=== PATIENT | female | born 1955 | race Caucasian/White ===

== ENCOUNTER 2017-08-01 09:45 | Outpatient (RCR) | payer MEDICARE, BC ==
[~2017-08-01 09:45] MED LIST: DECADRON 4MG TAB4 MG PO; NAPROXEN 3375 MG/TAB PO; NATURAL L-LYSI500 MG PO; NEURONTIN300 MG/CAP PO; NEXIUM 40MG40 MG PO; OYSCO 500500 M1 PO; VITAMIN B COMPL1 T16 PO; VITAMIN D 400400 IU PO
== END 2017-09-08 ==
LOC: MKS.ESL.PT
DX: I89.0 Lymphedema, not elsewhere classified (principal)
CPT/HCPCS: G8990-GP; G8991-GP

== ENCOUNTER → 2017-12-16 | Outpatient (CLI) | payer MEDICARE, BC ==
[2017-12-16] VITALS (8 sets, daily range): BP systolic 105–131; BP diastolic 56–76; PULSE 72–94
[~2017-12-16] VITALS: Ht 160 cm; Wt 59.0 kg
[~2017-12-16] MED LIST changes: +AMBIEN 5MG TABLE5 MG PO; +ATIVAN 0.50.5 MG/TAB PO; +ELIQUIS 5MG PO; +L-GLUTAMINE500 M5 PO; +NAPROSYN500 MG PO; +NORFLEX 10100 MG/TAB PO; +PREDNISONE10 MG PO; +PROBIOTIC FORMU1 CAP PO; +QUALAQUIN324 MG PO; +ULTRAM 50MG TAB50 MG PO; +VITAMIN D 1001000 IU PO
[2017-12-16 07:52] LABS: INR 1.2 (0.8-3.0); PROTHROMBIN TIME 14.1 SECONDS (9.7-12.8)
== END ==
LOC: COL.RAD 07:00
PROVIDERS: Internal Medicine Medical Oncology
DX: C78.7 Secondary malignant neoplasm of liver and intrahepatic bile duct (principal); Z85.42 Personal history of malignant neoplasm of other parts of uterus
CPT/HCPCS: J2250; J3010

== ENCOUNTER 2018-02-21 10:00 | Outpatient (RCR) | payer MEDICARE, BC ==
[2018-01-12 10:42] VITALS: BP 143/58; PULSE 73; TEMP 98.7
[2018-01-16] VITALS (10 sets, daily range): BP systolic 99–117; BP diastolic 46–63; PULSE 68–87; TEMP 98.1–98.8
[2018-01-24] VITALS (11 sets, daily range): BP systolic 114–146; BP diastolic 56–76; PULSE 66–87; TEMP 97.6–98.6
[2018-01-24 10:09] LABS: MEAN CELL VOLUME 87 fl (80.0-100.0); MEAN CORPUSCULAR HGB CONC 31 g/dl (33.0-37.0); MEAN PLATELET VOLUME 11.3 fl (7.4-10.4); PLATELET COUNT 189 K/mm3 (130-400); RED BLOOD COUNT 2.72 M/mm3 (4.10-5.30); REDCELL DISTRIBUTION WIDTH-CV 16.1 % (11.5-14.5)
[2018-01-24 10:10] LABS: HEMATOCRIT 23.6 % (37.0-47.0); HEMOGLOBIN 7.3 g/dl (12.5-16.0); MEAN CORPUSCULAR HEMOGLOBIN 27 pg (27.0-31.0)
[2018-01-24 10:22] LABS: ALANINE AMINOTRANSFERASE 62 U/L (9-52); ALBUMIN 2.6 gm/dL (3.5-5.0); ALKALINE PHOSPHATASE 373 U/L (50-136); ANION GAP 8 mmol/L (7-16); AST,SGOT 61 U/L (15-37); BILIRUBIN,TOTAL < 0.1 mg/dL (0.0-1.0); BLOOD UREA NITROGEN 22 mg/dL (7-17); CALCIUM 7.9 mg/dL (8.4-10.2); CARBON DIOXIDE 26 mmol/L (22-30); CHLORIDE 98 mmol/L (98-107); CREATININE, serum 0.89 mg/dL (0.52-1.25); GLUCOSE 134 mg/dL (74-106); SODIUM 132 mmol/L (137-145); TOTAL PROTEIN 5.4 gm/dL (6.4-8.2)
[2018-01-24 11:29] LABS: BAND 13 % (0-10); LYMPHOCYTE 2 % (20.0-51.0); NEUTROPHILS 84 % (42.0-75.2); PLATELET ESTIMATE NORMAL (NORMAL)
[2018-01-27 10:32] LABS: MEAN CELL VOLUME 83 fl (80.0-100.0); MEAN CORPUSCULAR HGB CONC 31 g/dl (33.0-37.0); MEAN PLATELET VOLUME 11.2 fl (7.4-10.4); PLATELET COUNT 157 K/mm3 (130-400); RED BLOOD COUNT 3.59 M/mm3 (4.10-5.30); REDCELL DISTRIBUTION WIDTH-CV 19.1 % (11.5-14.5)
[2018-01-27 10:34] LABS: HEMATOCRIT 29.6 % (37.0-47.0); HEMOGLOBIN 9.3 g/dl (12.5-16.0); MEAN CORPUSCULAR HEMOGLOBIN 26 pg (27.0-31.0)
[2018-01-27 10:44] VITALS: BP 118/68; PULSE 78; TEMP 97.6
[2018-01-27 10:52] LABS: ANISOCYTOSIS 1+; BAND 4 % (0-10); LYMPHOCYTE 3 % (20.0-51.0); MYELOCYTE 1 % (0-0); NEUTROPHILS 92 % (42.0-75.2); PLATELET ESTIMATE NORMAL (NORMAL)
[2018-01-31 10:14] LABS: HEMATOCRIT 35.7 % (37.0-47.0); HEMOGLOBIN 11.3 g/dl (12.5-16.0); MEAN CELL VOLUME 81 fl (80.0-100.0); MEAN CORPUSCULAR HEMOGLOBIN 26 pg (27.0-31.0); MEAN CORPUSCULAR HGB CONC 32 g/dl (33.0-37.0); MEAN PLATELET VOLUME 10.6 fl (7.4-10.4); PLATELET COUNT 207 K/mm3 (130-400); RED BLOOD COUNT 4.43 M/mm3 (4.10-5.30); REDCELL DISTRIBUTION WIDTH-CV 20.7 % (11.5-14.5)
[2018-01-31 10:27] LABS: ANISOCYTOSIS 2+; BAND 7 % (0-10); EOSINOPHIL 1 % (0-4); LYMPHOCYTE 2 % (20.0-51.0); METAMYELOCYTE 1 % (0-0); MYELOCYTE 3 % (0-0); NEUTROPHILS 79 % (42.0-75.2); PLATELET ESTIMATE NORMAL (NORMAL)
[2018-01-31 10:30] LABS: ALBUMIN 2.8 gm/dL (3.5-5.0); BILIRUBIN,TOTAL 0.1 mg/dL (0.0-1.0); CALCIUM 7.5 mg/dL (8.4-10.2); CREATININE, serum 0.75 mg/dL (0.52-1.25); POTASSIUM 3.4 mmol/L (3.4-5.0); TOTAL PROTEIN 5.5 gm/dL (6.4-8.2)
[2018-01-31 10:53] VITALS: BP 128/69; PULSE 92; TEMP 98.3
[2018-02-08 09:18] LABS: MEAN CELL VOLUME 81 fl (80.0-100.0); MEAN CORPUSCULAR HGB CONC 32 g/dl (33.0-37.0); MEAN PLATELET VOLUME 10.3 fl (7.4-10.4); PLATELET COUNT 331 K/mm3 (130-400); RED BLOOD COUNT 3.06 M/mm3 (4.10-5.30); REDCELL DISTRIBUTION WIDTH-CV 21.2 % (11.5-14.5)
[2018-02-08 09:19] VITALS: BP 120/66; PULSE 97; TEMP 98.2
[2018-02-08 09:36] LABS: ALANINE AMINOTRANSFERASE 78 U/L (9-52); ALBUMIN 2.7 gm/dL (3.5-5.0); ALKALINE PHOSPHATASE 440 U/L (50-136); ANION GAP 12 mmol/L (7-16); AST,SGOT 50 U/L (15-37); BILIRUBIN,TOTAL < 0.1 mg/dL (0.0-1.0); BLOOD UREA NITROGEN 14 mg/dL (7-17); CALCIUM 6.7 mg/dL (8.4-10.2); CARBON DIOXIDE 31 mmol/L (22-30); CHLORIDE 96 mmol/L (98-107); CREATININE, serum 0.72 mg/dL (0.52-1.25); GLUCOSE 123 mg/dL (74-106); LACTATE DEHYDROGENASE 1117 U/L (313-618); POTASSIUM 3.1 mmol/L (3.4-5.0); SODIUM 139 mmol/L (137-145); TOTAL PROTEIN 5.5 gm/dL (6.4-8.2)
[2018-02-08 09:46] LABS: HEMATOCRIT 24.8 % (37.0-47.0); HEMOGLOBIN 7.8 g/dl (12.5-16.0); MEAN CORPUSCULAR HEMOGLOBIN 25 pg (27.0-31.0)
[2018-02-08 09:57] LABS: BAND 3 % (0-10); LYMPHOCYTE 9 % (20.0-51.0); NEUTROPHILS 83 % (42.0-75.2); PLATELET ESTIMATE NORMAL (NORMAL)
[2018-02-08 09:58] LABS: HYPOCHROMIA 2+
[2018-02-08 09:59] LABS: ANISOCYTOSIS 1+
[2018-02-08 11:34] VITALS: BP 117/62; PULSE 79; TEMP 98.2
[2018-02-08 11:55] VITALS: BP 121/62; PULSE 72; TEMP 98.2
[2018-02-08 12:10] VITALS: BP 122/70; PULSE 78; TEMP 98.4
[2018-02-08 12:40] VITALS: BP 134/79; PULSE 66; TEMP 98
[2018-02-08 13:40] VITALS: BP 120/68; PULSE 80; TEMP 98.5
[2018-02-14 10:07] VITALS: BP 127/65; PULSE 96; TEMP 97.6
[2018-02-14 10:21] LABS: MEAN CELL VOLUME 84 fl (80.0-100.0); MEAN CORPUSCULAR HGB CONC 31 g/dl (33.0-37.0); PLATELET COUNT 269 K/mm3 (130-400); RED BLOOD COUNT 3.53 M/mm3 (4.10-5.30); REDCELL DISTRIBUTION WIDTH-CV 20.5 % (11.5-14.5)
[2018-02-14 10:26] LABS: HEMATOCRIT 29.6 % (37.0-47.0); HEMOGLOBIN 9.2 g/dl (12.5-16.0); MEAN CORPUSCULAR HEMOGLOBIN 26 pg (27.0-31.0)
[2018-02-14 10:43] LABS: ALANINE AMINOTRANSFERASE 35 U/L (9-52); ALBUMIN 2.8 gm/dL (3.5-5.0); ALKALINE PHOSPHATASE 442 U/L (50-136); ANION GAP 11 mmol/L (7-16); AST,SGOT 40 U/L (15-37); BILIRUBIN,TOTAL < 0.1 mg/dL (0.0-1.0); BLOOD UREA NITROGEN 15 mg/dL (7-17); CALCIUM 7.2 mg/dL (8.4-10.2); CARBON DIOXIDE 27 mmol/L (22-30); CHLORIDE 101 mmol/L (98-107); CREATININE, serum 0.86 mg/dL (0.52-1.25); GLUCOSE 133 mg/dL (74-106); LACTATE DEHYDROGENASE 864 U/L (313-618); POTASSIUM 3.2 mmol/L (3.4-5.0); SODIUM 139 mmol/L (137-145); TOTAL PROTEIN 5.7 gm/dL (6.4-8.2)
[2018-02-14 11:15] LABS: ANISOCYTOSIS 2+; BAND 2 % (0-10); HYPOCHROMIA 1+; LYMPHOCYTE 2 % (20.0-51.0); MYELOCYTE 1 % (0-0); NEUTROPHILS 89 % (42.0-75.2); PLATELET ESTIMATE NORMAL (NORMAL)
[~2018-02-21] VITALS: Ht 160 cm; Wt 59.0 kg
[2018-02-21] VITALS (10 sets, daily range): BP systolic 117–126; BP diastolic 6–72; PULSE 7–88; TEMP 97.7–98.4
[~2018-02-21 10:00] MED LIST changes: +LASIX 20MG TABL20 MG PO; +LOVENOX 6060 MG/0.6 SQ
[2018-02-21 10:29] LABS: MEAN CELL VOLUME 82 fl (80.0-100.0); MEAN CORPUSCULAR HGB CONC 31 g/dl (33.0-37.0); MEAN PLATELET VOLUME 10.9 fl (7.4-10.4); PLATELET COUNT 137 K/mm3 (130-400); RED BLOOD COUNT 2.88 M/mm3 (4.10-5.30); REDCELL DISTRIBUTION WIDTH-CV 20.5 % (11.5-14.5)
[2018-02-21 10:40] LABS: HEMATOCRIT 23.6 % (37.0-47.0); HEMOGLOBIN 7.4 g/dl (12.5-16.0); MEAN CORPUSCULAR HEMOGLOBIN 26 pg (27.0-31.0)
[2018-02-21 10:56] LABS: BAND 13 % (0-10); LYMPHOCYTE 7 % (20.0-51.0); NEUTROPHILS 75 % (42.0-75.2)
[2018-02-21 10:57] LABS: ANISOCYTOSIS 1+; HYPOCHROMIA 1+; PLATELET ESTIMATE DECREASED (NORMAL)
[2018-03-07] MEDS ORDERED: OYSCO 500500 M1 PO (08:45)
[2018-03-07] MEDS ORDERED: TESSALON P100 MG/CAP PO (08:47)
[2018-03-07] MEDS ORDERED: ZOFRAN ODT4 MG PO (08:49)
[2018-03-07] MEDS ORDERED: IPRATROPIUM BROM3 M1 IH (08:54)
[2018-03-15] MEDS ORDERED: REGLAN 10MG10 MG/TAB PO (16:07)
[2018-03-15] MEDS ORDERED: OXY IR5 MG PO (16:08)
[2018-03-15] MEDS ORDERED: NORCO 325 MG-51 TAB PO (17:03)
== END 2018-04-03 09:22 | disposition home or self-care (01) ==
LOC: EUO 10:00
PROVIDERS: Internal Medicine Medical Oncology
DX: C54.1 Malignant neoplasm of endometrium (principal); C7A.019 Malignant carcinoid tumor of the small intestine, unspecified portion; R91.8 Other nonspecific abnormal finding of lung field; Z45.2 Encounter for adjustment and management of vascular access device; Z95.9 Presence of cardiac and vascular implant and graft, unspecified
CPT/HCPCS: C1751; J1644; J1940; J7050; P9016